=== PATIENT | male | born 1980 | race Hispanic/Latino ===

== ENCOUNTER 2018-12-09 15:48 | Emergency (ER) | payer OTHER, SELFPAY ==
[2018-12-09 16:01] VITALS: BP 140/84; PULSE 65; RESP 14; TEMP 36.6; O2SAT 99; BMI 38.2
[2018-12-09 18:31] VITALS: BP 138/71; PULSE 81; RESP 16; O2SAT 100
--- NOTE | 2018-12-09 19:50 | ED_ITS ---
HPI - Wound/Laceration General Chief Complaint: Wound/Laceration Stated Complaint: fall, wound left elbow Time Seen by Provider: 12/09/18 16:11 Source: patient Mode of arrival: ambulatory Limitations: no limitations History of Present Illness HPI narrative: The patient comes to the emergency department after slipping and falling on some rocks and cutting his elbow. Patient sustained a ground level fall, and did not get injured in any other way. Patient states he has been able to move the elbow without difficulty. His last tetanus shot was within the last couple of years, he states. No other complaints at this time. Related Data Allergies Allergy/AdvReac Type Severity Reaction Status Date / Time No Known Drug Allergies Allergy Verified 12/09/18 16:01 Review of Systems Constitutional Denies chills, Denies fever(s), Denies lethargy and Denies weakness Eyes Denies change in vision, Denies eye discharge, Denies irritation and Denies loss of vision ENT Ears, Nose, Mouth, and Throat: Denies change in voice, Denies neck pain and Denies sore throat Cardiovascular Denies chest pain, Denies irregular heart rhythm, Denies lightheadedness, Denies palpitations, Denies dyspnea, Denies dyspnea on exertion and Denies orthopnea Respiratory Denies cough, Denies dyspnea, Denies dyspnea on exertion and Denies wheezing Gastrointestinal Gastrointestinal: Denies abdominal pain, Denies change in bowel habits, Denies diarrhea, Denies nausea and Denies vomiting Genitourinary Denies hematuria, Denies flank pain, Denies urinary incontinence and Denies urinary urgency Musculoskeletal Denies neck pain Integumentary/Breasts Denies pruritus, Denies erythema, Denies rash and Denies wounds Comments: Laceration right elbow Neurologic Denies confusion, Denies loss of vision and Denies weakness Psychiatric Denies anxiety, Denies confusion, Denies depression, Denies homicidal ideation and Denies suicidal ideation Endocrine Denies palpitations Hematologic/Lymphatic Denies easy bruising Allergic/Immunologic Denies wheezing [facility] Medical History Healthy adult (Acute) Social History Smoking Status: Never smoker Social History Smoking Status: Never smoker Exam Initial Vital Signs Initial Vital Signs: Vital Signs Temperature 97.9 F 12/09/18 16:01 Pulse Rate 65 12/09/18 16:01 Respiratory Rate 14 12/09/18 16:01 Blood Pressure 140/84 12/09/18 16:01 Pulse Oximetry 99 12/09/18 16:01 Const General: cooperative and well developed Nutritional Appearance: well nourished Orientation: alert, awake, oriented x3 and not confused [facility] Head: normocephalic and atraumatic Ears: external ears normal and TM's normal bilaterally Nose: external nose normal and No nasal discharge Face and sinus: sinuses nontender, face symmetric, no sinus tenderness and No dry mucous membranes Mouth: oral mucosae normal and moist mucous membranes Teeth and gingiva: dentition normal Throat: tonsils normal and uvula midline Eyes General: appearance normal, both eyes and all related structures Eyelids: eyelids normal Conjunctivae: conjunctivae normal Sclera: sclerae normal Pupils: PERRL EOM: EOM intact bilaterally Neck Neck: normal visual inspection, trachea midline, No lymphadenopathy, No midline deformity and No JVD Lymphatic: No lymphedema Chest Chest: normal inspection of the chest Resp Effort & Inspection: normal respiratory effort, able to speak in complete sentences, no respiratory distress and no use of accessory muscles Cardio Rate: regular rate Rhythm: regular rhythm Pulses: normal peripheral pulses Back/Spine/Pelvis Back: No CVA tenderness Cervical Spine: cervical ROM normal and No pain with cervical ROM Thoracic/Lumbar Spine: thoracic and lumbar spine normal to inspection Skin General: no rashes or lesions noted, No jaundice and No petechiae Other: Patient has a 3-1/2 cm, oblique laceration over the olecranon area of his right elbow. Scant, tiny, sand-like rock particles are noted within the wound. Bleeding is controlled. Neuro General: alert, oriented x3, gait normal and no focal motor deficits Speech: speech normal Extrem General: full ROM, no clubbing, cyanosis or edema, no pedal edema and no calf tenderness Other: The patient has full range of motion of the right elbow. No bony deformity or tenderness. Psych Appearance: well kempt Mental Status: mental status grossly normal Attitude: cooperative Thought Content: normal and suicidality Judgment: judgment good Procedures Laceration Repair Laceration 1: Site: upper extremity (Right elbow) Side (If applicable): right Size (cm): 3.5 Description: linear (Curvilinear) Depth: simple, single layer Local Anesthetic: lidocaine 2% Amount of anesthesia used (mL): 10 Pre-repair: wound explored, irrigated extensively and deep structures intact Skin layer closed with: nylon Size (cm): 4-0 Number of sutures: 8 Technique: simple, interrupted Course Course Narrative: Patient's wound was cleaned, both by irrigation and with scrubbing to get the foreign material out, and wound was then closed, as above, with 8 sutures. We have discussed home management of the wound, including avoidance of emergent, rubbing, or scrubbing, to avoid infection. We have discussed the timeline for re-evaluation of the wound and suture removal. Wound should be rechecked in 7 days, with consideration of suture removal at that time, unless the wound does not appear sufficiently healed. We have discussed the signs of infection, and the usual indications for return. Vital Signs - 8 hr 12/09/18 16:01 12/09/18 18:31 Temperature 97.9 F Pulse Rate 65 81 Respiratory Rate 14 16 Blood Pressure 140/84 138/71 Pulse Oximetry 99 100 MDM - Wound/Laceration Medical Records Attestation: I reviewed the patient's medical records. Discharge Plan Departure Patient Disposition: Home Clinical Impression: Laceration Discharge Date/Time: 12/09/18 18:31 Interventions: ED Discharge Assessment Last Done: 12/09/18 18:31 Instructions: DI for Laceration Repair Activity Restrictions/Additional Instructions: Please have your wound rechecked in 7 days. You will most likely have your sutures removed at that time. Please do not rub, scrub, or immerse her wound until the sutures are removed. You may let water run over the wound, however. If you develop redness and swelling spreading away from the wound, or if your wound split apart and drains pus, you will need to have it rechecked, as it may be infected. Referrals: [facility] [Provider Group]
== END 2018-12-09 18:31 | disposition home or self-care (01) ==
PROVIDERS: Emergency Provider Emergency Medicine
DX: S51.012A Laceration without foreign body of left elbow, initial encounter (principal); W18.30XA Fall on same level, unspecified, initial encounter
CPT/HCPCS: 12002; 99282; 99283